=== PATIENT | female | born 1955 | race Caucasian/White ===

== ENCOUNTER → 2019-08-04 | Outpatient (CLI) | payer MEDICARE, OTHER ==
[~2019-08-04] MED LIST: ADVAIR 250-501 EACH IH; ADVAIR 250-501 EACH INH; ASPIRIN325 MG PO; ATIVAN2 MG PO; BACLOFEN10 MG PO; COMBIVENT RESPIM4 GM IH; DEXILANT60 MG PO; FLONASE SENSIM5.9 ML; IPRAT-ALBUT 0.5-3 ML INH; LEXAPRO20 MG PO; LIPITOR20 MG PO; LYRICA75 MG PO; MUCINEX DM ER1 EACH PO; NORCO 10-325 T1 EACH PO; OMEPRAZOLE40 MG PO; PRENATAL MULTI1 EAC1 PO; SEROQUEL50 MG PO; TRAZODONE HCL50 MG PO; TRIAMTERENE-HCTZ1 EA PO
--- NOTE | 2019-08-04 11:41 | Diagnostic Imaging Report ---
EXAMINATION: CT scan of the chest without contrast. TECHNIQUE: Spiral CT images of the chest were performed from the lung apices to the level of the adrenal glands. No intravenous contrast was administered per referring physician request. Coronal and sagittal reformatted images were obtained. COMPARISON: Chest radiograph 07/27/2019, CT chest 06/07/2014 CLINICAL HISTORY:Pulmonary nodule DISCUSSION: ABSENCE OF INTRAVENOUS CONTRAST DECREASES SENSITIVITY FOR DETECTION OF FOCAL LESIONS AND VASCULAR PATHOLOGY. LINES/TUBES: None. LUNGS AND AIRWAYS: Adjacent 4 mm nodules in the right lung apex seen on series 3 image 20, not visualized on the prior study. The more lateral nodule appears contiguous with a segmental bronchus and may represent mucous plugging. 2 mm groundglass nodule peripheral right upper lobe series 3 image 46. Scattered juxtapleural reticular and groundglass opacities, nonspecific though likely to represent mild fibrotic changes. There is no pulmonary nodule in the right middle or lower lobe to correspond to the abnormality described on the comparison chest radiograph. The trachea, mainstem bronchi, and central lobar and segmental bronchi are patent. PLEURA: No pneumothorax or pleural effusions. HEART AND MEDIASTINUM: Visualized portions of the thyroid gland are normal. There is a mildly prominent precarinal lymph node; however, no hilar or mediastinal lymphadenopathy by size criteria. No pericardial effusion. No ectasia or aneurysmal dilatation of the thoracic aorta. The pulmonary outflow tract is of normal caliber. Atherosclerotic calcification of the aortic arch and coronary arteries. LYMPH NODES: There is no mediastinal, hilar or axillary lymphadenopathy. ABDOMEN: Calcified granulomata within the liver and spleen. Otherwise, the visualized liver, spleen, pancreas, adrenals are unremarkable. BONES AND SOFT TISSUES: No osseous destructive lesions. No focal soft tissue abnormalities. IMPRESSION: No right middle or lower lobe pulmonary nodule is identified to correspond to the nodular opacity described on the comparison chest radiograph, which may have represented a nipple shadow or summation of vascular and osseous structures. Adjacent 4 mm right upper lobe pulmonary nodules may be assessed for stability by CT scan of the chest without contrast in one year if the patient has a history of tobacco use or is at otherwise increased risk of malignancy per Fleischner Society 2017 guidelines. Scattered mild juxtapleural fibrotic changes, likely age-related. Atherosclerotic vascular disease. Signed by: Dr. Logan Cunningham M.D. on 08/04/2019 11:38 AM
== END ==
LOC: CT 10:53
PROVIDERS: ATTEND Internal Medicine Critical Care Medicine
DX: R91.8 Other nonspecific abnormal finding of lung field (principal)
CPT/HCPCS: 71250

== ENCOUNTER → 2020-08-02 | Outpatient (CLI) | payer MEDICARE | LOC: CT 15:57 | PROVIDERS: ATTEND Internal Medicine Critical Care Medicine | DX: R91.8 Other nonspecific abnormal finding of lung field (principal) | CPT/HCPCS: 71250 ==

== ENCOUNTER → 2023-12-24 | Outpatient (REF) | payer MEDICARE ==
[~2023-12-24] MED LIST changes: +ACETAMINOPHEN-1 EAC4; +BREO ELLIPTA 21 EACH INH; +DICYCLOMINE HCL10 MG PO; +LOSARTAN-HCTZ1 EAC1 PO
== END ==
LOC: RAD 13:08
PROVIDERS: ATTEND Family Medicine
DX: M25.531 Pain in right wrist (principal); M54.50 Low back pain, unspecified; Z98.890 Other specified postprocedural states
CPT/HCPCS: 72110